=== PATIENT | female | born 1965 | race Caucasian/White ===

== ENCOUNTER 2022-09-13 20:15 | Inpatient (IN) | payer MEDICAID ==
[~2022-09-13] VITALS: Ht 170.2 cm; Wt 81.8 kg
[2022-09-14 04:14] LABS: BASOPHILS # (AUTO) 0.1 X10'3 (0-0.2); BASOPHILS % (AUTO) 0.6 % (0-1); EOSINOPHILS # (AUTO) 0.3 X10'3 (0-0.9); EOSINOPHILS % (AUTO) 3.2 % (0-6); HEMATOCRIT 35.7 % (35.0-45.0); HEMOGLOBIN 11.1 g/dl (12.0-16.0); LYMPHOCYTES # (AUTO) 1.6 X10'3 (1.1-4.8); MEAN CORPUSCULAR HEMOGLOBIN 22.9 PG (27.0-31.0); MEAN CORPUSCULAR HGB CONC 31.1 g/dL (33.0-36.5); MEAN CORPUSCULAR VOLUME 73.8 FL (78-98); MEAN PLATELET VOLUME 7.9 FL (7.4-10.4); MONOCYTES # (AUTO) 0.8 X10'3 (0-0.9); MONOCYTES % (AUTO) 8.7 % (2-12); NEUTROPHILS % (AUTO) 71.5 % (42-75); PLATELET COUNT 429 X10'3 (140-440); RED BLOOD COUNT 4.83 X10'6 (4.20-5.60); RED CELL DISTRIBUTION WIDTH 22.8 % (11.5-14.5); WHITE BLOOD COUNT 9.7 X10'3 (4.5-11.0)
[2022-09-14 04:32] LABS: ALANINE AMINOTRANSFERASE 21 U/L (12-78); ALBUMIN 2.2 G/DL (3.4-5.0); ALBUMIN/GLOBULIN RATIO 0.4 (1.1-1.5); ALKALINE PHOSPHATASE 72 IU/L (46-116); ANION GAP 9 (8-16); ASPARTATE AMINO TRANSFERASE 13 U/L (10-37); BLOOD UREA NITROGEN 20 MG/DL (7-18); BUN/CREATININE RATIO 19.6 (6.6-38.0); CALCIUM 8.9 MG/DL (8.5-10.1); CHLORIDE 102 MMOL/L (99-107); CREATININE 1.02 MG/DL (0.40-0.90); GLUCOSE 328 MG/DL (70-104); MAGNESIUM 1.8 MG/DL (1.5-2.4); POTASSIUM 3.8 MMOL/L (3.5-5.1); SODIUM 137 MMOL/L (135-145); TOTAL CARBON DIOXIDE 26.4 MMOL/L (24-32); TOTAL PROTEIN 7.2 G/DL (6.4-8.2); eGFR 56 ML/MIN
[2022-09-14 04:40] LABS: BILIRUBIN,TOTAL 0.1 MG/DL (0.1-1.0)
[2022-09-14] MEDS ORDERED: ibuprofen tablet 400 MG TABLET PO ONE (04:40)
[2022-09-14 04:54] LABS: ANISOCYTOSIS 3+; ELLIPTOCYTES FEW; MICROCYTOSIS 1+; PLATELET ESTIMATE NORMAL; TEAR DROP CELLS FEW
[2022-09-14] MEDS ORDERED: DOXYCYCLINE 100MG CAPSULE PO STA (05:16)
[2022-09-14] MEDS ORDERED: CefTRIAXone/D5W-Rocephin 1gm 50 ML IV ONE (05:20)
[2022-09-14] MEDS ORDERED: magnesium 4gm in 100ml NS 100 ML IV PRN (05:30)
[2022-09-14] MEDS ORDERED: potassium Cl 20 mEq SR tablet PO PRN (05:30)
[2022-09-14] MEDS ORDERED: magnesium Cl slow-release 64mg tablet PO PRN (05:30)
[2022-09-14] MEDS ORDERED: potassium Cl 40MEQ/1/2NS 520ml 520 ML IV PRN (05:30)
[2022-09-14] MEDS ORDERED: ondansetron/PF 4mg/2ml inj IV PRN (05:30)
[2022-09-14] MEDS ORDERED: acetaminophen 325mg tablet PO PRN (05:30)
[2022-09-14] MEDS ORDERED: magnesium hydroxide 30ml (MOM) UD suspension PO PRN (05:30)
[2022-09-14] MEDS ORDERED: mag hydrox/Alum hydrox/simeth 30ml oral suspension PO PRN (05:30)
[2022-09-14] MEDS ORDERED: MESSAGE TO PHARMACY PO ONE ×2 (05:40→10:45)
[2022-09-14] MEDS ORDERED: dextrose 50%-water 50ml dispensing syringe IV PRN ×4 (05:40→10:45)
[2022-09-14] MEDS ORDERED: glucagon, human recombinant 1mg kit SUBCUT PRN ×2 (05:40→10:45)
[2022-09-14] MEDS ORDERED: insulin Lispro (HumaLOG) vial - multi-dose SQ SCH (05:40)
[2022-09-14] MEDS ORDERED: DEXTROSE 15 GM of carb/4 tabs (each vial/BOTTLE has 4 tablets) PO PRN ×4 (05:40→10:45)
--- NOTE | 2022-09-14 06:55 | NUR ---
report from sisi chaves for continuation of care. pt is awake ao4. resp even unlabored. denies cp or sob. pt lower extremities show extreme edema and weeping. rt lower ext show abrasions. +3 pitting.pt claims pain 03/06.
[2022-09-14] MEDS: HYDROcodone/acetaminophen 10/325mg tab PO PRN ×2 (07:07→10:59)
[2022-09-14] MEDS: normal saline 1000ml 1,000 ML IV SCH (07:08)
[2022-09-14] MEDS ORDERED: carVEDilol 12.5mg tablet PO SCH (08:00)
[2022-09-14] MEDS: clindamycin 300mg/D5W 50mL 50 ML IV SCH ×3 (08:00→20:09)
[2022-09-14] MEDS: K and/or MAG REPLACEMENT MC SCH ×2 (08:00→20:00)
[2022-09-14] MEDS ORDERED: montelukast 10mg tablet PO SCH (08:00)
[2022-09-14] MEDS: docusate sod 100mg capsule PO SCH ×2 (08:00→20:00)
[2022-09-14] MEDS: heparin, porcine 5000 units/ml vial SQ SCH ×2 (08:00→20:08)
[2022-09-14] MEDS ORDERED: PERFLUTREN PROTEIN-A MICROSPHR (Optison) 0.22 MG/ML 3ML VIAL IV ONE (10:00)
[2022-09-14] MEDS ORDERED: nicotine 14mg patch - 24hr TD ONE (10:05)
[2022-09-14] MEDS ORDERED: furosemide 40mg/4ml inj IV ONE (10:45)
[2022-09-14] MEDS ORDERED: IBUP-1986 PO (11:49)
[2022-09-14] MEDS ORDERED: GABA600T13 PO (11:49)
[2022-09-14] MEDS ORDERED: CARV-50 PO (11:49)
[2022-09-14] MEDS ORDERED: GABA-530 PO (11:49)
[2022-09-14] MEDS ORDERED: CITA20TA27 PO (11:49)
[2022-09-14] MEDS ORDERED: MONT-40 PO (11:49)
[2022-09-14] MEDS ORDERED: BACL10TA2 PO (11:49)
[2022-09-14] MEDS: insulin Lispro (HumaLOG) vial - multi-dose SQ SCH ×2 (12:37→23:44)
[2022-09-14 13:13] LABS: HEMOGLOBIN A1C 7.7 % (4.5-6.2)
[2022-09-14] MEDS ORDERED: NICO-630 TD (13:30)
[2022-09-14] MEDS ORDERED: HYDROcodone/acetaminophen 5mg/325mg tablet PO PRN (13:35)
[2022-09-14] MEDS: baclofen 10mg tablet PO SCH ×2 (14:33→20:14)
[2022-09-14] MEDS: HYDROmorphone 1 mg/ml syringe IV PRN (15:21)
--- NOTE | 2022-09-14 16:52 | NUR ---
pictures taken of pt rt foot calf and buttocks
[2022-09-14] MEDS ORDERED: GLIP5TAB13 PO (17:35)
--- NOTE | 2022-09-14 18:30 | NUR ---
report to arian for continuation of care.
[2022-09-14] MEDS ORDERED: gabapentin 100mg capsule PO SCH (20:00)
[2022-09-14] MEDS: gabapentin 300mg capsule PO SCH ×2 (20:08→21:25)
[2022-09-14] MEDS: furosemide 40mg/4ml inj IV SCH (20:09)
[2022-09-14] MEDS: HYDROmorphone inj. 0.5 MG/0.5 ML DISP.SYRIN IV PRN (20:10)
[2022-09-14] MEDS: carVEDilol 12.5mg tablet PO SCH (20:15)
[2022-09-14 23:10] VITALS: BP 109/65
[2022-09-14] MEDS: insulin glargine (Lantus) pen - multi-dose SQ SCH (23:43)
[2022-09-15] MEDS: normal saline 1000ml 1,000 ML IV SCH (00:01)
[2022-09-15] MEDS: HYDROmorphone inj. 0.5 MG/0.5 ML DISP.SYRIN IV PRN ×4 (00:09→23:46)
[2022-09-15] MEDS: baclofen 10mg tablet PO SCH ×4 (02:26→21:26)
[2022-09-15] MEDS: HYDROcodone/acetaminophen 10/325mg tab PO PRN ×5 (02:26→21:29)
[2022-09-15] MEDS: clindamycin 300mg/D5W 50mL 50 ML IV SCH ×4 (02:37→19:42)
[2022-09-15 06:00] VITALS: BP 131/78
[2022-09-15 06:17] LABS: ALANINE AMINOTRANSFERASE 12 U/L (12-78); ALBUMIN 1.9 G/DL (3.4-5.0); ALBUMIN/GLOBULIN RATIO 0.4 (1.1-1.5); ALKALINE PHOSPHATASE 62 IU/L (46-116); ANION GAP 4 (8-16); ASPARTATE AMINO TRANSFERASE 16 U/L (10-37); BILIRUBIN,TOTAL 0.2 MG/DL (0.1-1.0); BLOOD UREA NITROGEN 19 MG/DL (7-18); BUN/CREATININE RATIO 22.6 (6.6-38.0); CALCIUM 8.4 MG/DL (8.5-10.1); CHLORIDE 102 MMOL/L (99-107); CREATININE 0.84 MG/DL (0.40-0.90); GLUCOSE 147 MG/DL (70-104); POTASSIUM 3.3 MMOL/L (3.5-5.1); SODIUM 138 MMOL/L (135-145); TOTAL PROTEIN 6.3 G/DL (6.4-8.2); eGFR 70 ML/MIN
[2022-09-15 06:20] LABS: BASOPHILS % (AUTO) 0.3 % (0-1); EOSINOPHILS # (AUTO) 0.3 X10'3 (0-0.9); EOSINOPHILS % (AUTO) 2.6 % (0-6); HEMOGLOBIN 10.3 g/dl (12.0-16.0); LYMPHOCYTES # (AUTO) 2.3 X10'3 (1.1-4.8); LYMPHOCYTES % (AUTO) 22.1 % (21-51); MEAN CORPUSCULAR HEMOGLOBIN 23.2 PG (27.0-31.0); MEAN CORPUSCULAR HGB CONC 31.2 g/dL (33.0-36.5); MEAN CORPUSCULAR VOLUME 74.4 FL (78-98); MEAN PLATELET VOLUME 7.8 FL (7.4-10.4); MONOCYTES # (AUTO) 1.3 X10'3 (0-0.9); MONOCYTES % (AUTO) 12.7 % (2-12); NEUTROPHILS # (AUTO) 6.3 X10'3 (1.8-7.7); NEUTROPHILS % (AUTO) 62.3 % (42-75); PLATELET COUNT 345 X10'3 (140-440); RED BLOOD COUNT 4.44 X10'6 (4.20-5.60); RED CELL DISTRIBUTION WIDTH 22.8 % (11.5-14.5); WHITE BLOOD COUNT 10.2 X10'3 (4.5-11.0)
--- NOTE | 2022-09-15 06:30 | NUR ---
Problems reprioritized. Patient report given, questions answered & plan of care reviewed with BRIAN CHADWICK.
--- NOTE | 2022-09-15 06:49 | NUR ---
Patient in room [facility]. I have received report from NETTA Castellanos and had the opportunity to ask questions and assume patient care.
[2022-09-15] MEDS: montelukast 10mg tablet PO SCH (08:00)
[2022-09-15] MEDS: K and/or MAG REPLACEMENT MC SCH ×2 (08:00→20:00)
[2022-09-15] MEDS: docusate sod 100mg capsule PO SCH ×2 (08:00→21:27)
[2022-09-15] MEDS: citalopram 20mg tablet PO SCH (08:01)
[2022-09-15] MEDS: furosemide 40mg/4ml inj IV SCH (08:01)
[2022-09-15] MEDS: gabapentin 300mg capsule PO SCH ×3 (08:01→23:45)
[2022-09-15] MEDS: carVEDilol 12.5mg tablet PO SCH ×2 (08:02→21:25)
[2022-09-15] MEDS: nicotine 14mg patch - 24hr TD SCH (08:03)
[2022-09-15] MEDS: heparin, porcine 5000 units/ml vial SQ SCH ×2 (08:04→21:31)
[2022-09-15] MEDS: potassium Cl 20 mEq SR tablet PO PRN ×3 (08:18→17:09)
[2022-09-15] MEDS: CefTRIAXone/D5W-Rocephin 1gm 50 ML IV SCH (09:05)
[2022-09-15] MEDS: insulin Lispro (HumaLOG) vial - multi-dose SQ SCH ×3 (09:15→19:25)
[2022-09-15] MEDS: HYDROmorphone 1 mg/ml syringe IV PRN ×2 (09:57→14:14)
--- NOTE | 2022-09-15 11:28 | NUR ---
Patient BP 84/52. Patient denies dizziness or lightheadedness. Dr. tOero is aware and states he will see patient and address meds. Will continue to monitor.
--- NOTE | 2022-09-15 11:33 | NUR ---
Head of bed lowered and legs elevated. BP now 86/50 hr 83.
--- NOTE | 2022-09-15 12:03 | NUR ---
BP now 95/53 HR 85. Patient appears to be resting comfortably with eyes closed, respirations even and unlabored.
[2022-09-15 12:13] VITALS: BP 95/53
[2022-09-15 12:52] VITALS: BP 102/62
--- NOTE | 2022-09-15 14:19 | NUR ---
Per EMR pt with T2DM, fairly well controlled with A1c 7.7%. Written DM education with RD contact information placed in patient's chart. Per EMR pt with BLE cellulitis. Wound care has been consulted, pending assessment at this time. Pt currently eating well on CHO controlled diet, documented with 100% PO intake first meal. Will continue to follow. Addendum: 09/15/22 at [address] Amended: Links added.
--- NOTE | 2022-09-15 15:16 | NUR ---
PRESSURE ULCER EDUCATION: DEFINITION: A pressure ulcer is an area of skin that breaks down when you stay in one position too long. The constant pressure against the skin reduces the blood flow to that area and the affected tissue dies. CAUSES: "Being bedridden or in a wheelchair "Fragile skin "Having a chronic condition, such as diabetes or vascular disease "Inability to move certain parts of your body without assistance "Older age "Incontinence of urine or stool SYMPTOMS: "A reddened area that DOES NOT turn white when pressed on - this can be the beginning of a pressure ulcer "A blister, deep sore or a crater - these can be advanced pressure ulcers FIRST AID: "Relieve the pressure on this area "Keep the area clean and dry "Call your primary doctor if you see any of the above symptoms "DO NOT massage the area "DO NOT use a donut shaped or ring shaped pillow- these actually interfere with the blood flow and cause complications PREVENTION: "Check for pressure ulcers everyday "Change position at least every two hours to relieve pressure "Use items that help relieve pressure- pillows, sheepskin, foam padding, and powders. "Keep skin clean and dry "Eat healthy well balanced meals "Exercise daily IF YOU SEE ANY OF THESE SYMPTOMS WHILE IN THE HOSPITAL - TELL YOUR NURSE IMMEDIATELY. IF YOU SEE ANY OF THESE SYMPTOMS WHILE AT HOME OR HAVE ANY QUESTIONS OR CONCERNS ABOUT PRESSURE ULCERS - CALL YOUR PRIMARY DOCTOR IMMEDIATELY. Addendum: 09/15/22 at 1516 by Nohemi Knox RN Amended: Links added.
[2022-09-15 18:00] VITALS: BP 105/60
--- NOTE | 2022-09-15 18:38 | NUR ---
Problems reprioritized. Patient report given, questions answered & plan of care reviewed with NETTA Castellanos.
--- NOTE | 2022-09-15 18:40 | NUR ---
Patient in room [facility]. I have received report from BRIAN CHADWICK and had the opportunity to ask questions and assume patient care.
--- NOTE | 2022-09-15 20:13 | NUR ---
pt stated LBM was 09/14/2022 Addendum: 09/15/22 at 2024 by Bonny Lopez STUDENT JAMAL Amended: Links added.
[2022-09-15] MEDS: insulin glargine (Lantus) pen - multi-dose SQ SCH (21:41)
[2022-09-15 22:00] VITALS: BP 122/60
[2022-09-15] MEDS: furosemide 20 MG/2 ML vial IV SCH (22:09)
--- NOTE | 2022-09-15 23:24 | NUR ---
Charting by and safe medication administration by Marcello WAGGONER reviewed and observed by Alejandro Alcazar RN
[2022-09-16] MEDS: baclofen 10mg tablet PO SCH ×4 (02:23→21:00)
[2022-09-16] MEDS: HYDROcodone/acetaminophen 10/325mg tab PO PRN ×5 (02:24→22:34)
[2022-09-16] MEDS: clindamycin 300mg/D5W 50mL 50 ML IV SCH ×3 (02:24→14:12)
[2022-09-16 06:00] VITALS: BP 120/71
[2022-09-16] MEDS: normal saline 1000ml 1,000 ML IV SCH (06:01)
[2022-09-16] MEDS: HYDROmorphone inj. 0.5 MG/0.5 ML DISP.SYRIN IV PRN ×2 (06:03→12:26)
--- NOTE | 2022-09-16 06:25 | NUR ---
Problems reprioritized. Patient report given, questions answered & plan of care reviewed with JENNIFER CHADWICK.
--- NOTE | 2022-09-16 06:30 | NUR ---
Problems reprioritized. Patient report given, questions answered & plan of care reviewed with JENNIFER CHADWICK.
--- NOTE | 2022-09-16 06:35 | NUR ---
Patient in room [facility]. I have received report from Jacqueline Phillips and had the opportunity to ask questions and assume patient care.
[2022-09-16] MEDS: K and/or MAG REPLACEMENT MC SCH ×2 (06:50→20:00)
[2022-09-16] MEDS: heparin, porcine 5000 units/ml vial SQ SCH ×2 (07:42→21:02)
[2022-09-16] MEDS: montelukast 10mg tablet PO SCH (07:42)
[2022-09-16] MEDS: carVEDilol 12.5mg tablet PO SCH ×2 (07:43→21:03)
[2022-09-16] MEDS: citalopram 20mg tablet PO SCH (07:43)
[2022-09-16] MEDS: gabapentin 300mg capsule PO SCH ×3 (07:43→21:01)
[2022-09-16] MEDS: furosemide 20 MG/2 ML vial IV SCH ×2 (07:44→21:03)
[2022-09-16] MEDS: nicotine 14mg patch - 24hr TD SCH (07:44)
[2022-09-16] MEDS: MINERAL OIL/PETROLATUM,WHITE CREAM 107 GM TUBE TP SCH (07:44)
[2022-09-16 07:47] LABS: BASOPHILS % (AUTO) 0.5 % (0-1); EOSINOPHILS # (AUTO) 0.2 X10'3 (0-0.9); EOSINOPHILS % (AUTO) 3.4 % (0-6); HEMATOCRIT 30.8 % (35.0-45.0); HEMOGLOBIN 9.7 g/dl (12.0-16.0); LYMPHOCYTES % (AUTO) 29.6 % (21-51); MEAN CORPUSCULAR HEMOGLOBIN 23.2 PG (27.0-31.0); MEAN CORPUSCULAR HGB CONC 31.4 g/dL (33.0-36.5); MEAN CORPUSCULAR VOLUME 73.9 FL (78-98); MEAN PLATELET VOLUME 8.4 FL (7.4-10.4); MONOCYTES # (AUTO) 0.9 X10'3 (0-0.9); MONOCYTES % (AUTO) 13.5 % (2-12); NEUTROPHILS # (AUTO) 3.5 X10'3 (1.8-7.7); PLATELET COUNT 263 X10'3 (140-440); RED BLOOD COUNT 4.17 X10'6 (4.20-5.60); RED CELL DISTRIBUTION WIDTH 21.6 % (11.5-14.5); WHITE BLOOD COUNT 6.7 X10'3 (4.5-11.0)
[2022-09-16] MEDS: docusate sod 100mg capsule PO SCH ×2 (07:52→20:00)
[2022-09-16 08:13] LABS: ALANINE AMINOTRANSFERASE 17 U/L (12-78); ALBUMIN 1.8 G/DL (3.4-5.0); ALBUMIN/GLOBULIN RATIO 0.4 (1.1-1.5); ALKALINE PHOSPHATASE 57 IU/L (46-116); ANION GAP 6 (8-16); ASPARTATE AMINO TRANSFERASE 21 U/L (10-37); BILIRUBIN,TOTAL 0.2 MG/DL (0.1-1.0); BLOOD UREA NITROGEN 22 MG/DL (7-18); BUN/CREATININE RATIO 25.3 (6.6-38.0); CALCIUM 8.6 MG/DL (8.5-10.1); CHLORIDE 101 MMOL/L (99-107); CREATININE 0.87 MG/DL (0.40-0.90); GLUCOSE 154 MG/DL (70-104); POTASSIUM 4.1 MMOL/L (3.5-5.1); SODIUM 138 MMOL/L (135-145); TOTAL CARBON DIOXIDE 31.2 MMOL/L (24-32); TOTAL PROTEIN 6.3 G/DL (6.4-8.2); eGFR 67 ML/MIN
[2022-09-16] MEDS: CefTRIAXone/D5W-Rocephin 1gm 50 ML IV SCH (08:17)
[2022-09-16] MEDS ORDERED: aspirin 81mg tab.chew PO ONE (08:50)
[2022-09-16 09:40] LABS: ANISOCYTOSIS 3+; MICROCYTOSIS 1+; PLATELET ESTIMATE NORMAL
[2022-09-16 09:41] LABS: ELLIPTOCYTES FEW; HYPOCHROMASIA 1+
[2022-09-16] MEDS: insulin Lispro (HumaLOG) vial - multi-dose SQ SCH ×3 (09:50→19:30)
[2022-09-16 10:00] VITALS: BP 122/58
[2022-09-16] MEDS: HYDROmorphone 1 mg/ml syringe IV PRN ×2 (16:30→20:54)
[2022-09-16 18:00] VITALS: BP 96/51
[2022-09-16] MEDS ORDERED: heparin 10,000 units/1 ML INJ IV ONE (18:10)
[2022-09-16 18:52] LABS: APTT 24 SECONDS (22-32)
[2022-09-16 20:55] VITALS: BP 105/54
[2022-09-16] MEDS: clindamycin 150mg capsule PO SCH (21:01)
[2022-09-16 22:00] VITALS: BP 99/64
[2022-09-16] MEDS: insulin glargine (Lantus) pen - multi-dose SQ SCH (22:26)
[2022-09-16] MEDS: heparin 25,000 UNIT/250ml bag 250 ML IV PRN (23:49)
[2022-09-17] MEDS: HYDROmorphone 1 mg/ml syringe IV PRN ×4 (01:10→14:31)
[2022-09-17] MEDS: baclofen 10mg tablet PO SCH ×4 (02:04→21:03)
[2022-09-17] MEDS: clindamycin 150mg capsule PO SCH ×4 (02:04→22:00)
[2022-09-17] MEDS: HYDROcodone/acetaminophen 10/325mg tab PO PRN ×5 (03:45→21:59)
[2022-09-17 06:00] VITALS: BP 117/44
--- NOTE | 2022-09-17 06:47 | NUR ---
Patient in room [facility]. I have received report from Pat and had the opportunity to ask questions and assume patient care.
[2022-09-17 07:02] LABS: BASOPHILS % (AUTO) 0.5 % (0-1); EOSINOPHILS # (AUTO) 0.2 X10'3 (0-0.9); EOSINOPHILS % (AUTO) 2.8 % (0-6); HEMATOCRIT 31.1 % (35.0-45.0); HEMOGLOBIN 9.7 g/dl (12.0-16.0); LYMPHOCYTES # (AUTO) 1.9 X10'3 (1.1-4.8); LYMPHOCYTES % (AUTO) 23.7 % (21-51); MEAN CORPUSCULAR HGB CONC 31.3 g/dL (33.0-36.5); MEAN CORPUSCULAR VOLUME 73.6 FL (78-98); MEAN PLATELET VOLUME 8.2 FL (7.4-10.4); MONOCYTES # (AUTO) 0.9 X10'3 (0-0.9); MONOCYTES % (AUTO) 11.3 % (2-12); NEUTROPHILS # (AUTO) 4.8 X10'3 (1.8-7.7); NEUTROPHILS % (AUTO) 61.7 % (42-75); PLATELET COUNT 315 X10'3 (140-440); RED BLOOD COUNT 4.23 X10'6 (4.20-5.60); RED CELL DISTRIBUTION WIDTH 22.8 % (11.5-14.5); WHITE BLOOD COUNT 7.8 X10'3 (4.5-11.0)
[2022-09-17] MEDS: citalopram 20mg tablet PO SCH (07:31)
[2022-09-17] MEDS: carVEDilol 12.5mg tablet PO SCH ×2 (07:31→21:03)
[2022-09-17] MEDS: pantoprazole 40mg Tablet.DR PO SCH (07:31)
[2022-09-17] MEDS: heparin, porcine 5000 units/ml vial SQ SCH ×2 (07:32→21:04)
[2022-09-17] MEDS: furosemide 20 MG/2 ML vial IV SCH ×2 (07:32→21:04)
[2022-09-17] MEDS: gabapentin 300mg capsule PO SCH ×3 (07:32→21:03)
[2022-09-17] MEDS: montelukast 10mg tablet PO SCH (07:32)
[2022-09-17] MEDS: heparin 10,000 units/1 ML INJ IV PRN (07:36)
[2022-09-17 07:37] LABS: ALANINE AMINOTRANSFERASE 13 U/L (12-78); ALBUMIN/GLOBULIN RATIO 0.4 (1.1-1.5); ALKALINE PHOSPHATASE 57 IU/L (46-116); ANION GAP 4 (8-16); ASPARTATE AMINO TRANSFERASE 20 U/L (10-37); BILIRUBIN,TOTAL 0.1 MG/DL (0.1-1.0); BLOOD UREA NITROGEN 21 MG/DL (7-18); BUN/CREATININE RATIO 25.6 (6.6-38.0); CALCIUM 8.5 MG/DL (8.5-10.1); CHLORIDE 99 MMOL/L (99-107); CREATININE 0.82 MG/DL (0.40-0.90); GLUCOSE 143 MG/DL (70-104); POTASSIUM 4.2 MMOL/L (3.5-5.1); SODIUM 137 MMOL/L (135-145); TOTAL CARBON DIOXIDE 34.1 MMOL/L (24-32); TOTAL PROTEIN 6.7 G/DL (6.4-8.2); eGFR 72 ML/MIN
[2022-09-17 07:47] LABS: ANISOCYTOSIS 3+; MICROCYTOSIS 1+; PLATELET ESTIMATE NORMAL; POIKILOCYTOSIS FEW; POLYCHROMASIA FEW
[2022-09-17] MEDS: nicotine 14mg patch - 24hr TD SCH (07:47)
[2022-09-17] MEDS: CefTRIAXone/D5W-Rocephin 1gm 50 ML IV SCH (07:52)
[2022-09-17] MEDS: K and/or MAG REPLACEMENT MC SCH ×2 (07:53→20:00)
[2022-09-17] MEDS: docusate sod 100mg capsule PO SCH ×2 (07:56→21:04)
[2022-09-17] MEDS: MINERAL OIL/PETROLATUM,WHITE CREAM 107 GM TUBE TP SCH (08:38)
[2022-09-17] MEDS: aspirin 81mg tab.chew PO SCH (10:32)
[2022-09-17] MEDS ORDERED: iohexol 350MG/ML 100ml bottle IV ONE (13:14)
[2022-09-17 13:25] LABS: APTT 51 SECONDS (22-32)
[2022-09-17] MEDS: insulin Lispro (HumaLOG) vial - multi-dose SQ SCH ×2 (14:18→19:35)
[2022-09-17 18:00] VITALS: BP 99/60
[2022-09-17 18:27] VITALS: BP 126/64
[2022-09-17] MEDS: HYDROmorphone inj. 0.5 MG/0.5 ML DISP.SYRIN IV PRN (19:37)
[2022-09-17 20:09] LABS: APTT 39 SECONDS (22-32)
[2022-09-17 22:00] VITALS: BP 106/54
[2022-09-17] MEDS: insulin glargine (Lantus) pen - multi-dose SQ SCH (22:06)
[2022-09-18] MEDS: HYDROmorphone inj. 0.5 MG/0.5 ML DISP.SYRIN IV PRN ×5 (00:07→19:10)
[2022-09-18] MEDS: heparin 25,000 UNIT/250ml bag 250 ML IV PRN ×2 (00:15→19:09)
[2022-09-18] MEDS: normal saline 1000ml 1,000 ML IV SCH (02:45)
[2022-09-18] MEDS: clindamycin 150mg capsule PO SCH ×4 (02:49→19:10)
[2022-09-18] MEDS: baclofen 10mg tablet PO SCH ×4 (02:49→19:10)
[2022-09-18] MEDS: HYDROcodone/acetaminophen 10/325mg tab PO PRN ×4 (03:50→22:03)
[2022-09-18 06:00] LABS: ALANINE AMINOTRANSFERASE 13 U/L (12-78); ALBUMIN/GLOBULIN RATIO 0.4 (1.1-1.5); ALKALINE PHOSPHATASE 59 IU/L (46-116); ANION GAP 4 (8-16); ASPARTATE AMINO TRANSFERASE 20 U/L (10-37); BASOPHILS % (AUTO) 0.5 % (0-1); BILIRUBIN,TOTAL 0.2 MG/DL (0.1-1.0); BLOOD UREA NITROGEN 20 MG/DL (7-18); BUN/CREATININE RATIO 21.7 (6.6-38.0); CALCIUM 8.5 MG/DL (8.5-10.1); CHLORIDE 98 MMOL/L (99-107); CREATININE 0.92 MG/DL (0.40-0.90); EOSINOPHILS # (AUTO) 0.2 X10'3 (0-0.9); EOSINOPHILS % (AUTO) 2.6 % (0-6); GLUCOSE 179 MG/DL (70-104); HEMATOCRIT 31.9 % (35.0-45.0); HEMOGLOBIN 10.1 g/dl (12.0-16.0); LYMPHOCYTES # (AUTO) 1.8 X10'3 (1.1-4.8); LYMPHOCYTES % (AUTO) 26.9 % (21-51); MEAN CORPUSCULAR HEMOGLOBIN 23.4 PG (27.0-31.0); MEAN CORPUSCULAR HGB CONC 31.5 g/dL (33.0-36.5); MEAN CORPUSCULAR VOLUME 74.3 FL (78-98); MEAN PLATELET VOLUME 8.5 FL (7.4-10.4); MONOCYTES # (AUTO) 0.8 X10'3 (0-0.9); MONOCYTES % (AUTO) 11.8 % (2-12); NEUTROPHILS % (AUTO) 58.2 % (42-75); PLATELET COUNT 209 X10'3 (140-440); POTASSIUM 3.7 MMOL/L (3.5-5.1); RED BLOOD COUNT 4.29 X10'6 (4.20-5.60); RED CELL DISTRIBUTION WIDTH 22.4 % (11.5-14.5); SODIUM 137 MMOL/L (135-145); TOTAL CARBON DIOXIDE 35.4 MMOL/L (24-32); TOTAL PROTEIN 6.9 G/DL (6.4-8.2); WHITE BLOOD COUNT 6.8 X10'3 (4.5-11.0); eGFR 63 ML/MIN
--- NOTE | 2022-09-18 06:30 | NUR ---
Problems reprioritized. Patient report given, questions answered & plan of care reviewed with AVEL CHADWICK.
--- NOTE | 2022-09-18 07:00 | NUR ---
Patient in room [facility]. I have received report from Jacqueline Phillips RN and had the opportunity to ask questions and assume patient care.
[2022-09-18 07:15] VITALS: BP 124/62
[2022-09-18] MEDS: K and/or MAG REPLACEMENT MC SCH ×2 (08:00→19:15)
[2022-09-18] MEDS: MINERAL OIL/PETROLATUM,WHITE CREAM 107 GM TUBE TP SCH (08:34)
[2022-09-18] MEDS: CefTRIAXone/D5W-Rocephin 1gm 50 ML IV SCH (08:34)
[2022-09-18] MEDS: aspirin 81mg tab.chew PO SCH (08:35)
[2022-09-18] MEDS: nicotine 14mg patch - 24hr TD SCH (08:35)
[2022-09-18] MEDS: montelukast 10mg tablet PO SCH (08:35)
[2022-09-18] MEDS: carVEDilol 12.5mg tablet PO SCH ×2 (08:35→19:10)
[2022-09-18] MEDS: citalopram 20mg tablet PO SCH (08:35)
[2022-09-18] MEDS: docusate sod 100mg capsule PO SCH ×2 (08:35→19:10)
[2022-09-18] MEDS: pantoprazole 40mg Tablet.DR PO SCH (08:35)
[2022-09-18] MEDS: furosemide 20 MG/2 ML vial IV SCH ×2 (09:26→19:10)
[2022-09-18] MEDS: gabapentin 300mg capsule PO SCH ×3 (09:26→22:03)
[2022-09-18] MEDS: insulin Lispro (HumaLOG) vial - multi-dose SQ SCH ×2 (09:39→19:06)
[2022-09-18 11:11] VITALS: BP 95/58
[2022-09-18 12:14] LABS: APTT 39 SECONDS (22-32)
--- NOTE | 2022-09-18 12:31 | NUR ---
Initial: Pt admit DX BLE cellulitis, DM, and CRISTIN per EMR. Noted pt w/ R lower leg full thickness/L lower leg partial thickness cellulitis, R 5th toe DM ulcer no depth, stage II PI L sacrum, and R ischium partial thickness wounds per WOC note. Pt PO ~75-100% avg carb controlled meals w/ fluctuations partially meeting needs. LILIANE recommends Dae smoothie BIDBD for wound healing; notified. LBM 09/15. Will continue to follow. Rec: 1. continue carb controlled diet; encourage PO 2. Dae smoothie BIDBD for wound healing; pending physician verification in EMR 3. routine bowel care 4. weekly wts Addendum: 09/18/22 at [address] Amended: Links added.
[2022-09-18] MEDS: heparin 10,000 units/1 ML INJ IV PRN (13:21)
[2022-09-18] MEDS: JUVEN Smoothie Arginine/Glut./Ca2+Bmb (Juven 19.3pkt) 240ml cup PO SCH (17:30)
[2022-09-18 18:00] VITALS: BP 101/53
--- NOTE | 2022-09-18 18:22 | NUR ---
Problems reprioritized. Patient report given, questions answered & plan of care reviewed with Armida CHADWICK.
[2022-09-18 19:15] VITALS: BP 109/54
[2022-09-18 22:00] VITALS: BP 96/53
[2022-09-18] MEDS: insulin glargine (Lantus) pen - multi-dose SQ SCH (22:02)
[2022-09-19] VITALS (7 sets, daily range): BP systolic 89–128; BP diastolic 48–71
[2022-09-19] MEDS: heparin 10,000 units/1 ML INJ IV PRN ×2 (00:16→13:35)
[2022-09-19] MEDS: heparin 25,000 UNIT/250ml bag 250 ML IV PRN ×3 (00:16→13:39)
[2022-09-19] MEDS: HYDROmorphone inj. 0.5 MG/0.5 ML DISP.SYRIN IV PRN ×2 (00:22→04:36)
[2022-09-19] MEDS: baclofen 10mg tablet PO SCH ×4 (02:23→21:45)
[2022-09-19] MEDS: clindamycin 150mg capsule PO SCH ×4 (02:23→21:45)
[2022-09-19] MEDS: HYDROcodone/acetaminophen 10/325mg tab PO PRN ×5 (02:33→21:47)
--- NOTE | 2022-09-19 06:20 | NUR ---
Problems reprioritized. Patient report given, questions answered & plan of care reviewed with NETTA FARFAN.
--- NOTE | 2022-09-19 06:48 | NUR ---
Patient in room [facility]. I have received report from Mikhail laird and had the opportunity to ask questions and assume patient care.
[2022-09-19 07:07] LABS: BASOPHILS % (AUTO) 0.5 % (0-1); EOSINOPHILS # (AUTO) 0.3 X10'3 (0-0.9); EOSINOPHILS % (AUTO) 3.3 % (0-6); HEMATOCRIT 32.7 % (35.0-45.0); HEMOGLOBIN 10.2 g/dl (12.0-16.0); LYMPHOCYTES # (AUTO) 1.9 X10'3 (1.1-4.8); LYMPHOCYTES % (AUTO) 21.7 % (21-51); MEAN CORPUSCULAR HEMOGLOBIN 23.4 PG (27.0-31.0); MEAN CORPUSCULAR HGB CONC 31.3 g/dL (33.0-36.5); MEAN CORPUSCULAR VOLUME 74.9 FL (78-98); MEAN PLATELET VOLUME 8.8 FL (7.4-10.4); MONOCYTES # (AUTO) 0.9 X10'3 (0-0.9); NEUTROPHILS # (AUTO) 5.6 X10'3 (1.8-7.7); NEUTROPHILS % (AUTO) 64.5 % (42-75); PLATELET COUNT 244 X10'3 (140-440); RED BLOOD COUNT 4.36 X10'6 (4.20-5.60); RED CELL DISTRIBUTION WIDTH 22.6 % (11.5-14.5); WHITE BLOOD COUNT 8.6 X10'3 (4.5-11.0)
[2022-09-19] MEDS: JUVEN Smoothie Arginine/Glut./Ca2+Bmb (Juven 19.3pkt) 240ml cup PO SCH ×2 (07:30→17:30)
[2022-09-19] MEDS: furosemide 20 MG/2 ML vial IV SCH ×2 (07:38→21:45)
[2022-09-19] MEDS: aspirin 81mg tab.chew PO SCH (07:40)
[2022-09-19] MEDS: docusate sod 100mg capsule PO SCH ×2 (07:40→21:45)
[2022-09-19] MEDS: carVEDilol 12.5mg tablet PO SCH ×2 (07:40→20:00)
[2022-09-19] MEDS: citalopram 20mg tablet PO SCH (07:40)
[2022-09-19] MEDS: pantoprazole 40mg Tablet.DR PO SCH (07:40)
[2022-09-19] MEDS: gabapentin 300mg capsule PO SCH ×3 (07:40→21:49)
[2022-09-19] MEDS: nicotine 14mg patch - 24hr TD SCH (07:41)
[2022-09-19] MEDS: montelukast 10mg tablet PO SCH (07:41)
[2022-09-19 07:49] LABS: % IRON SATURATION 13 % (11-46); IRON 41 UG/DL (49-151); TOTAL IRON BINDING CAPACITY 306 UG/DL (259-388)
[2022-09-19 07:54] LABS: ALANINE AMINOTRANSFERASE 14 U/L (12-78); ALBUMIN 2.4 G/DL (3.4-5.0); ALBUMIN/GLOBULIN RATIO 0.5 (1.1-1.5); ALKALINE PHOSPHATASE 62 IU/L (46-116); ANION GAP 5 (8-16); ASPARTATE AMINO TRANSFERASE 29 U/L (10-37); BILIRUBIN,TOTAL 0.1 MG/DL (0.1-1.0); BLOOD UREA NITROGEN 18 MG/DL (7-18); BUN/CREATININE RATIO 19.4 (6.6-38.0); CALCIUM 8.9 MG/DL (8.5-10.1); CHLORIDE 96 MMOL/L (99-107); CREATININE 0.93 MG/DL (0.40-0.90); GLUCOSE 157 MG/DL (70-104); SODIUM 140 MMOL/L (135-145); TOTAL PROTEIN 7.4 G/DL (6.4-8.2); eGFR 62 ML/MIN
[2022-09-19 08:00] LABS: FERRITIN 233 NG/ML (8-252); POTASSIUM 3.9 MMOL/L (3.5-5.1)
[2022-09-19] MEDS: K and/or MAG REPLACEMENT MC SCH ×2 (08:00→20:00)
[2022-09-19] MEDS: CefTRIAXone/D5W-Rocephin 1gm 50 ML IV SCH (08:52)
[2022-09-19] MEDS: MINERAL OIL/PETROLATUM,WHITE CREAM 107 GM TUBE TP SCH (08:52)
[2022-09-19] MEDS: insulin Lispro (HumaLOG) vial - multi-dose SQ SCH ×3 (09:03→19:44)
[2022-09-19] MEDS: HYDROmorphone 1 mg/ml syringe IV PRN ×4 (09:47→23:31)
--- NOTE | 2022-09-19 15:19 | NUR ---
Dr Holguin contacted with regards heparin infusion which is cardiac protocol to be changed to DVT protocol . dr holguin wishes to keep it as cardiac protocol . patient medicated q2hrly for pain 7-06/06. mod relief.
--- NOTE | 2022-09-19 18:11 | NUR ---
heparin infusion dc'd per Dr holguin. report given to Monse CHADWICK
--- NOTE | 2022-09-19 18:40 | NUR ---
Patient in room [facility]. I have received report from Tash CHADWICK and had the opportunity to ask questions and assume patient care.
[2022-09-19] MEDS: insulin glargine (Lantus) pen - multi-dose SQ SCH (22:10)
[2022-09-20] MEDS: HYDROcodone/acetaminophen 10/325mg tab PO PRN ×4 (02:49→21:54)
[2022-09-20] MEDS: baclofen 10mg tablet PO SCH ×4 (02:49→20:21)
[2022-09-20] MEDS: clindamycin 150mg capsule PO SCH ×4 (02:50→20:21)
[2022-09-20] MEDS: normal saline 1000ml 1,000 ML IV SCH (02:52)
[2022-09-20 06:00] VITALS: BP 112/52
--- NOTE | 2022-09-20 06:50 | NUR ---
Problems reprioritized. Patient report given, questions answered & plan of care reviewed with Tash CHADWICK.
--- NOTE | 2022-09-20 06:55 | NUR ---
Patient in room [facility]. I have received report from YOVANA CHADWICK and had the opportunity to ask questions and assume patient care.
[2022-09-20] MEDS: JUVEN Smoothie Arginine/Glut./Ca2+Bmb (Juven 19.3pkt) 240ml cup PO SCH ×2 (07:30→17:30)
[2022-09-20] MEDS: K and/or MAG REPLACEMENT MC SCH ×2 (08:00→20:00)
[2022-09-20] MEDS: aspirin 81mg tab.chew PO SCH (08:25)
[2022-09-20] MEDS: furosemide 20 MG/2 ML vial IV SCH ×2 (08:25→21:56)
[2022-09-20] MEDS: montelukast 10mg tablet PO SCH (08:25)
[2022-09-20] MEDS: gabapentin 300mg capsule PO SCH ×3 (08:25→20:22)
[2022-09-20] MEDS: HYDROmorphone 1 mg/ml syringe IV PRN ×2 (08:25→14:10)
[2022-09-20] MEDS: docusate sod 100mg capsule PO SCH ×2 (08:26→20:20)
[2022-09-20] MEDS: carVEDilol 12.5mg tablet PO SCH ×2 (08:26→20:20)
[2022-09-20] MEDS: citalopram 20mg tablet PO SCH (08:26)
[2022-09-20] MEDS: pantoprazole 40mg Tablet.DR PO SCH (08:26)
[2022-09-20] MEDS: nicotine 14mg patch - 24hr TD SCH (08:27)
[2022-09-20] MEDS: MINERAL OIL/PETROLATUM,WHITE CREAM 107 GM TUBE TP SCH (08:27)
[2022-09-20] MEDS: CefTRIAXone/D5W-Rocephin 1gm 50 ML IV SCH (08:41)
[2022-09-20] MEDS: insulin Lispro (HumaLOG) vial - multi-dose SQ SCH ×3 (08:53→20:02)
[2022-09-20 10:00] VITALS: BP 105/61
[2022-09-20] MEDS ORDERED: FURO40TA4 PO (10:28)
[2022-09-20] MEDS ORDERED: POTA-207 PO (10:28)
[2022-09-20] MEDS ORDERED: CLIN-91 PO (10:29)
--- NOTE | 2022-09-20 11:49 | NUR ---
PATIENT MEDICATED Q2HRLY for pain in bilat legs and sacrum. seen by Dr akhtar is for possible discharge. patient became very tearful with regards this. account services analyst and casey saw operator consulted with regards DC plan.
[2022-09-20] MEDS: ascorbic acid 500mg tablet PO SCH (17:16)
[2022-09-20 18:00] VITALS: BP 124/57
--- NOTE | 2022-09-20 18:42 | NUR ---
Problems reprioritized. Patient report given, questions answered & plan of care reviewed with Monse CHADWICK.
--- NOTE | 2022-09-20 18:45 | NUR ---
Patient in room [facility]. I have received report from Tash CHADWICK and had the opportunity to ask questions and assume patient care.
[2022-09-20] MEDS: FERROUS SULFATE 142 MG TABLET.ER (45mg elemental) PO SCH (20:22)
[2022-09-20 22:00] VITALS: BP 148/68
[2022-09-20] MEDS: nystatin 15 GM powder TP SCH (22:30)
[2022-09-20] MEDS: insulin glargine (Lantus) pen - multi-dose SQ SCH (22:35)
[2022-09-21] MEDS: baclofen 10mg tablet PO SCH ×4 (01:48→20:46)
[2022-09-21] MEDS: clindamycin 150mg capsule PO SCH ×4 (01:48→20:44)
[2022-09-21] MEDS: HYDROcodone/acetaminophen 10/325mg tab PO PRN ×2 (01:49→08:42)
--- NOTE | 2022-09-21 06:40 | NUR ---
Problems reprioritized. Patient report given, questions answered & plan of care reviewed with Tash CHADWICK.
[2022-09-21 07:04] LABS: BASOPHILS % (AUTO) 0.5 % (0-1); EOSINOPHILS # (AUTO) 0.2 X10'3 (0-0.9); EOSINOPHILS % (AUTO) 3.9 % (0-6); HEMATOCRIT 30.4 % (35.0-45.0); HEMOGLOBIN 9.5 g/dl (12.0-16.0); LYMPHOCYTES # (AUTO) 1.7 X10'3 (1.1-4.8); LYMPHOCYTES % (AUTO) 27.3 % (21-51); MEAN CORPUSCULAR HEMOGLOBIN 23.2 PG (27.0-31.0); MEAN CORPUSCULAR HGB CONC 31.1 g/dL (33.0-36.5); MEAN CORPUSCULAR VOLUME 74.7 FL (78-98); MEAN PLATELET VOLUME 8.4 FL (7.4-10.4); MONOCYTES # (AUTO) 0.8 X10'3 (0-0.9); MONOCYTES % (AUTO) 11.9 % (2-12); NEUTROPHILS # (AUTO) 3.6 X10'3 (1.8-7.7); NEUTROPHILS % (AUTO) 56.4 % (42-75); PLATELET COUNT 254 X10'3 (140-440); RED BLOOD COUNT 4.07 X10'6 (4.20-5.60); RED CELL DISTRIBUTION WIDTH 22.4 % (11.5-14.5); WHITE BLOOD COUNT 6.3 X10'3 (4.5-11.0)
[2022-09-21 07:11] LABS: ALANINE AMINOTRANSFERASE 11 U/L (12-78); ALBUMIN/GLOBULIN RATIO 0.4 (1.1-1.5); ALKALINE PHOSPHATASE 51 IU/L (46-116); ANION GAP 6 (8-16); ASPARTATE AMINO TRANSFERASE 25 U/L (10-37); BILIRUBIN,TOTAL 0.2 MG/DL (0.1-1.0); BLOOD UREA NITROGEN 17 MG/DL (7-18); BUN/CREATININE RATIO 19.5 (6.6-38.0); CALCIUM 8.8 MG/DL (8.5-10.1); CHLORIDE 99 MMOL/L (99-107); CREATININE 0.87 MG/DL (0.40-0.90); GLUCOSE 106 MG/DL (70-104); POTASSIUM 3.9 MMOL/L (3.5-5.1); SODIUM 142 MMOL/L (135-145); TOTAL CARBON DIOXIDE 36.9 MMOL/L (24-32); TOTAL PROTEIN 6.6 G/DL (6.4-8.2); eGFR 67 ML/MIN
[2022-09-21] MEDS: JUVEN Smoothie Arginine/Glut./Ca2+Bmb (Juven 19.3pkt) 240ml cup PO SCH ×2 (07:30→17:36)
--- NOTE | 2022-09-21 07:31 | NUR ---
Patient in room [facility]. I have received report from BLANQUITA CHADWICK and had the opportunity to ask questions and assume patient care.
[2022-09-21] MEDS: K and/or MAG REPLACEMENT MC SCH ×2 (08:00→20:00)
[2022-09-21] MEDS: ascorbic acid 500mg tablet PO SCH ×2 (08:42→17:35)
[2022-09-21] MEDS: docusate sod 100mg capsule PO SCH ×2 (08:42→20:45)
[2022-09-21] MEDS: CefTRIAXone/D5W-Rocephin 1gm 50 ML IV SCH (08:42)
[2022-09-21] MEDS: gabapentin 300mg capsule PO SCH ×3 (08:42→20:47)
[2022-09-21] MEDS: carVEDilol 12.5mg tablet PO SCH ×2 (08:42→20:46)
[2022-09-21] MEDS: nystatin 15 GM powder TP SCH ×3 (08:43→20:48)
[2022-09-21] MEDS: montelukast 10mg tablet PO SCH (08:43)
[2022-09-21] MEDS: citalopram 20mg tablet PO SCH (08:43)
[2022-09-21] MEDS: FERROUS SULFATE 142 MG TABLET.ER (45mg elemental) PO SCH ×2 (08:43→20:47)
[2022-09-21] MEDS: MINERAL OIL/PETROLATUM,WHITE CREAM 107 GM TUBE TP SCH (08:43)
[2022-09-21] MEDS: aspirin 81mg tab.chew PO SCH (08:43)
[2022-09-21] MEDS: nicotine 14mg patch - 24hr TD SCH (08:43)
[2022-09-21] MEDS: furosemide 20 MG/2 ML vial IV SCH ×2 (08:44→19:31)
[2022-09-21] MEDS: insulin Lispro (HumaLOG) vial - multi-dose SQ SCH ×3 (09:33→19:25)
[2022-09-21] MEDS: pantoprazole 40mg Tablet.DR PO SCH (09:34)
[2022-09-21] MEDS ORDERED: oxyCODONE/APAP 10/325mg tablet PO PRN (10:05)
--- NOTE | 2022-09-21 10:45 | NUR ---
WOC assessment: Consult received for toe nail trim. 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 She reports she knows this and she will follow-up. Refused to have nails filed as well. Reported off to primary RN.
[2022-09-21] MEDS: oxyCODONE/APAP 10/325mg tablet PO PRN (15:42)
[2022-09-21 20:00] VITALS: BP 141/76
[2022-09-21] MEDS: insulin glargine (Lantus) pen - multi-dose SQ SCH (21:04)
[2022-09-21 22:00] VITALS: BP 106/61
--- NOTE | 2022-09-21 22:54 | NUR ---
patient was given percocet 10mg at 2044 med was given by student Delores Jamison witnessed by instructor flornia Alcazar but did not save on maria elena .
--- NOTE | 2022-09-22 | NUR ---
patient had three loose Bm's today, pictures taken of wounds pending DC in am. Son came into have papers signed with regards accommodation. Dr Escoto and social and political studies professor involved. Patient stated that change in pain meds working much better see Emar. All cares given Patient resting at this time. Report given to Elizabeth CHADWICK
[2022-09-22] MEDS: oxyCODONE/APAP 10/325mg tablet PO PRN ×6 (00:45→21:45)
[2022-09-22] MEDS: baclofen 10mg tablet PO SCH ×4 (03:41→21:48)
[2022-09-22] MEDS: clindamycin 150mg capsule PO SCH ×4 (03:41→21:44)
[2022-09-22] MEDS: normal saline 1000ml 1,000 ML IV SCH (03:42)
[2022-09-22 06:00] VITALS: BP 109/70
--- NOTE | 2022-09-22 06:15 | NUR ---
Patient in room [facility]. I have received report from NETTA Johnson and had the opportunity to ask questions and assume patient care.
[2022-09-22 06:35] LABS: BASOPHILS % (AUTO) 0.5 % (0-1); EOSINOPHILS # (AUTO) 0.2 X10'3 (0-0.9); EOSINOPHILS % (AUTO) 3.9 % (0-6); HEMATOCRIT 29.9 % (35.0-45.0); HEMOGLOBIN 9.4 g/dl (12.0-16.0); LYMPHOCYTES # (AUTO) 1.7 X10'3 (1.1-4.8); LYMPHOCYTES % (AUTO) 26.7 % (21-51); MEAN CORPUSCULAR HEMOGLOBIN 23.6 PG (27.0-31.0); MEAN CORPUSCULAR HGB CONC 31.6 g/dL (33.0-36.5); MEAN CORPUSCULAR VOLUME 74.8 FL (78-98); MEAN PLATELET VOLUME 8.7 FL (7.4-10.4); MONOCYTES # (AUTO) 0.8 X10'3 (0-0.9); MONOCYTES % (AUTO) 12.1 % (2-12); NEUTROPHILS # (AUTO) 3.6 X10'3 (1.8-7.7); NEUTROPHILS % (AUTO) 56.8 % (42-75); PLATELET COUNT 239 X10'3 (140-440); RED BLOOD COUNT 3.99 X10'6 (4.20-5.60); RED CELL DISTRIBUTION WIDTH 22.2 % (11.5-14.5); WHITE BLOOD COUNT 6.3 X10'3 (4.5-11.0)
[2022-09-22 06:55] LABS: ALANINE AMINOTRANSFERASE 16 U/L (12-78); ALBUMIN 2.1 G/DL (3.4-5.0); ALBUMIN/GLOBULIN RATIO 0.4 (1.1-1.5); ALKALINE PHOSPHATASE 50 IU/L (46-116); ANION GAP 5 (8-16); ASPARTATE AMINO TRANSFERASE 23 U/L (10-37); BILIRUBIN,TOTAL 0.2 MG/DL (0.1-1.0); BLOOD UREA NITROGEN 17 MG/DL (7-18); BUN/CREATININE RATIO 17.2 (6.6-38.0); CALCIUM 8.6 MG/DL (8.5-10.1); CHLORIDE 98 MMOL/L (99-107); CREATININE 0.99 MG/DL (0.40-0.90); GLUCOSE 231 MG/DL (70-104); POTASSIUM 3.5 MMOL/L (3.5-5.1); SODIUM 138 MMOL/L (135-145); TOTAL CARBON DIOXIDE 34.9 MMOL/L (24-32); TOTAL PROTEIN 6.8 G/DL (6.4-8.2); eGFR 58 ML/MIN
[2022-09-22] MEDS: docusate sod 100mg capsule PO SCH ×2 (08:00→21:44)
[2022-09-22] MEDS: K and/or MAG REPLACEMENT MC SCH ×2 (08:00→20:00)
[2022-09-22] MEDS: JUVEN Smoothie Arginine/Glut./Ca2+Bmb (Juven 19.3pkt) 240ml cup PO SCH ×2 (08:29→17:52)
[2022-09-22] MEDS: montelukast 10mg tablet PO SCH (08:29)
[2022-09-22] MEDS: citalopram 20mg tablet PO SCH (08:29)
[2022-09-22] MEDS: pantoprazole 40mg Tablet.DR PO SCH (08:30)
[2022-09-22] MEDS: FERROUS SULFATE 142 MG TABLET.ER (45mg elemental) PO SCH ×2 (08:30→21:44)
[2022-09-22] MEDS: gabapentin 300mg capsule PO SCH ×3 (08:30→21:44)
[2022-09-22] MEDS: aspirin 81mg tab.chew PO SCH (08:30)
[2022-09-22] MEDS: ascorbic acid 500mg tablet PO SCH ×2 (08:31→16:34)
[2022-09-22] MEDS: carVEDilol 12.5mg tablet PO SCH ×2 (08:31→21:48)
[2022-09-22] MEDS: nicotine 14mg patch - 24hr TD SCH (08:32)
[2022-09-22] MEDS: furosemide 20 MG/2 ML vial IV SCH ×2 (08:32→20:00)
[2022-09-22] MEDS: CefTRIAXone/D5W-Rocephin 1gm 50 ML IV SCH (08:33)
[2022-09-22] MEDS: MINERAL OIL/PETROLATUM,WHITE CREAM 107 GM TUBE TP SCH (08:33)
[2022-09-22] MEDS: nystatin 15 GM powder TP SCH ×3 (08:33→21:00)
[2022-09-22] MEDS: insulin Lispro (HumaLOG) vial - multi-dose SQ SCH ×2 (08:55→13:40)
--- NOTE | 2022-09-22 16:54 | NUR ---
PAGER ID: [phone] MESSAGE: Monique [phone] RE: Rani Schuler room 350B - she would like to be discharged with pain meds for a couple of days
[2022-09-22] MEDS ORDERED: OXYC1TAB17 PO (17:05)
[2022-09-22] MEDS ORDERED: FERR142T13 PO (17:16)
--- NOTE | 2022-09-22 17:25 | NUR ---
DC plascencia catheter patient tolerated well.
--- NOTE | 2022-09-22 17:32 | NUR ---
Pictures within 24 hours present in the chart. Addendum: 09/22/22 at 1733 by Monique Singh RN Amended: Links added.
--- NOTE | 2022-09-22 18:10 | NUR ---
Patient has been discharged by the hospitalist. Her ride just arrived so report [facility] shift [facility] nurse who will complete the discharge.
--- NOTE | 2022-09-22 18:14 | NUR ---
Problems reprioritized. Patient report given, questions answered & plan of care reviewed with NETTA Vazquez.
--- NOTE | 2022-09-22 18:30 | NUR ---
Phone call to Dr. Escoto at shift change after report recieved, as pt had f/c d/cd at 1730 and has not voided. Pt is currently sitting on side of the bed with nursing students who put her in an attends for transfer w/ [facility] to [facility] to go home with son. Addendum: 09/22/22 at 1846 by Taylor Turner RN Amended: Links added.
--- NOTE | 2022-09-22 19:30 | NUR ---
Pt has refused to have f/c replaced as she stated that it isn't covered by her insurance. She has 55ml in her bladder with bladder scan. Kolby phoned and we are to continue with her discharge as ordered. Pt instructed to return to ER if she is unable to void and to continue to f/u with her PCP. Addendum: 09/22/22 at 1952 by Taylor Turner RN Amended: Links added.
[2022-09-22] MEDS: insulin glargine (Lantus) pen - multi-dose SQ SCH (21:00)
[2022-09-22 22:00] VITALS: BP 131/69
--- NOTE | 2022-09-22 23:30 | NUR ---
Bladder scan for 275ml, pt doesn't feel the need to void. Encouraged PO intake. Addendum: 09/23/22 at 0009 by Taylor Turner RN Amended: Links added.
[2022-09-23] MEDS: oxyCODONE/APAP 10/325mg tablet PO PRN ×5 (02:34→22:03)
[2022-09-23] MEDS: clindamycin 150mg capsule PO SCH ×4 (02:34→21:14)
[2022-09-23] MEDS: baclofen 10mg tablet PO SCH ×4 (02:34→20:00)
[2022-09-23 06:00] VITALS: BP 102/56
--- NOTE | 2022-09-23 06:20 | NUR ---
Problems reprioritized. Patient report given, questions answered & plan of care reviewed with Monique CHADWICK. Addendum: 09/23/22 at 0624 by Taylor Turner RN Amended: Links added.
--- NOTE | 2022-09-23 06:26 | NUR ---
Patient in room [facility]. I have received report from NETTA Vazqeuz and had the opportunity to ask questions and assume patient care.
[2022-09-23] MEDS: pantoprazole 40mg Tablet.DR PO SCH (06:58)
[2022-09-23] MEDS: JUVEN Smoothie Arginine/Glut./Ca2+Bmb (Juven 19.3pkt) 240ml cup PO SCH ×2 (07:30→18:17)
[2022-09-23] MEDS: MINERAL OIL/PETROLATUM,WHITE CREAM 107 GM TUBE TP SCH (08:00)
[2022-09-23] MEDS: K and/or MAG REPLACEMENT MC SCH ×2 (08:00→20:00)
[2022-09-23] MEDS: docusate sod 100mg capsule PO SCH ×2 (08:00→20:00)
[2022-09-23] MEDS: insulin Lispro (HumaLOG) vial - multi-dose SQ SCH ×2 (09:02→19:00)
[2022-09-23] MEDS: nystatin 15 GM powder TP SCH ×3 (09:14→21:15)
[2022-09-23] MEDS: citalopram 20mg tablet PO SCH (09:14)
[2022-09-23] MEDS: aspirin 81mg tab.chew PO SCH (09:14)
[2022-09-23] MEDS: nicotine 14mg patch - 24hr TD SCH (09:15)
[2022-09-23] MEDS: CefTRIAXone/D5W-Rocephin 1gm 50 ML IV SCH (09:15)
[2022-09-23] MEDS: furosemide 20 MG/2 ML vial IV SCH ×2 (09:15→21:12)
[2022-09-23] MEDS: carVEDilol 12.5mg tablet PO SCH ×2 (09:16→21:14)
[2022-09-23] MEDS: montelukast 10mg tablet PO SCH (09:16)
[2022-09-23] MEDS: gabapentin 300mg capsule PO SCH ×3 (09:16→21:14)
[2022-09-23] MEDS: ascorbic acid 500mg tablet PO SCH ×2 (09:17→17:54)
[2022-09-23] MEDS: FERROUS SULFATE 142 MG TABLET.ER (45mg elemental) PO SCH ×2 (09:17→21:14)
--- NOTE | 2022-09-23 14:51 | NUR ---
PAGER ID: [phone] MESSAGE: Monique [phone] - RE: Rani Schuler room 350B [facility] set up [facility] transport for tomorrow @ 1700
[2022-09-23 18:00] VITALS: BP 102/64
--- NOTE | 2022-09-23 18:39 | NUR ---
Problems reprioritized. Patient report given, questions answered & plan of care reviewed with NETTA Liu.
[2022-09-23] MEDS: insulin glargine (Lantus) pen - multi-dose SQ SCH (21:29)
[2022-09-23 22:00] VITALS: BP 118/65
[2022-09-24] MEDS: clindamycin 150mg capsule PO SCH ×3 (02:03→15:30)
[2022-09-24] MEDS: oxyCODONE/APAP 10/325mg tablet PO PRN ×3 (02:04→14:06)
[2022-09-24] MEDS: baclofen 10mg tablet PO SCH ×3 (02:04→15:30)
[2022-09-24] MEDS: normal saline 1000ml 1,000 ML IV SCH ×2 (05:31→05:32)
[2022-09-24 06:00] VITALS: BP 113/59
[2022-09-24 06:46] LABS: BASOPHILS % (AUTO) 0.5 % (0-1); EOSINOPHILS # (AUTO) 0.2 X10'3 (0-0.9); EOSINOPHILS % (AUTO) 3.7 % (0-6); HEMATOCRIT 30.5 % (35.0-45.0); HEMOGLOBIN 9.7 g/dl (12.0-16.0); LYMPHOCYTES # (AUTO) 1.9 X10'3 (1.1-4.8); MEAN CORPUSCULAR HEMOGLOBIN 23.9 PG (27.0-31.0); MEAN CORPUSCULAR HGB CONC 31.7 g/dL (33.0-36.5); MEAN CORPUSCULAR VOLUME 75.4 FL (78-98); MONOCYTES # (AUTO) 0.9 X10'3 (0-0.9); MONOCYTES % (AUTO) 14.9 % (2-12); NEUTROPHILS # (AUTO) 2.9 X10'3 (1.8-7.7); NEUTROPHILS % (AUTO) 48.9 % (42-75); PLATELET COUNT 241 X10'3 (140-440); RED BLOOD COUNT 4.05 X10'6 (4.20-5.60); RED CELL DISTRIBUTION WIDTH 23.2 % (11.5-14.5); WHITE BLOOD COUNT 5.9 X10'3 (4.5-11.0)
[2022-09-24 06:52] LABS: ALANINE AMINOTRANSFERASE 11 U/L (12-78); ALBUMIN 2.2 G/DL (3.4-5.0); ALBUMIN/GLOBULIN RATIO 0.4 (1.1-1.5); ALKALINE PHOSPHATASE 51 IU/L (46-116); ANION GAP 4 (8-16); ASPARTATE AMINO TRANSFERASE 22 U/L (10-37); BILIRUBIN,TOTAL 0.2 MG/DL (0.1-1.0); BLOOD UREA NITROGEN 20 MG/DL (7-18); BUN/CREATININE RATIO 22.7 (6.6-38.0); CHLORIDE 99 MMOL/L (99-107); CREATININE 0.88 MG/DL (0.40-0.90); GLUCOSE 112 MG/DL (70-104); POTASSIUM 3.9 MMOL/L (3.5-5.1); SODIUM 138 MMOL/L (135-145); TOTAL CARBON DIOXIDE 35.5 MMOL/L (24-32); TOTAL PROTEIN 7.1 G/DL (6.4-8.2); eGFR 66 ML/MIN
[2022-09-24] MEDS: JUVEN Smoothie Arginine/Glut./Ca2+Bmb (Juven 19.3pkt) 240ml cup PO SCH (07:30)
[2022-09-24] MEDS: docusate sod 100mg capsule PO SCH (08:00)
[2022-09-24] MEDS: K and/or MAG REPLACEMENT MC SCH (08:00)
[2022-09-24] MEDS: CefTRIAXone/D5W-Rocephin 1gm 50 ML IV SCH (08:43)
[2022-09-24] MEDS: carVEDilol 12.5mg tablet PO SCH (08:44)
[2022-09-24] MEDS: nicotine 14mg patch - 24hr TD SCH (08:44)
[2022-09-24] MEDS: gabapentin 300mg capsule PO SCH ×2 (08:44→15:30)
[2022-09-24] MEDS: citalopram 20mg tablet PO SCH (08:44)
[2022-09-24] MEDS: FERROUS SULFATE 142 MG TABLET.ER (45mg elemental) PO SCH (08:44)
[2022-09-24] MEDS: montelukast 10mg tablet PO SCH (08:44)
[2022-09-24] MEDS: ascorbic acid 500mg tablet PO SCH (08:45)
[2022-09-24] MEDS: pantoprazole 40mg Tablet.DR PO SCH (08:45)
[2022-09-24] MEDS: aspirin 81mg tab.chew PO SCH (08:45)
[2022-09-24] MEDS: MINERAL OIL/PETROLATUM,WHITE CREAM 107 GM TUBE TP SCH (08:46)
[2022-09-24] MEDS: nystatin 15 GM powder TP SCH ×2 (08:46→15:30)
[2022-09-24] MEDS: furosemide 20 MG/2 ML vial IV SCH (08:47)
[2022-09-24] MEDS: insulin Lispro (HumaLOG) vial - multi-dose SQ SCH (09:58)
[2022-09-24 10:00] VITALS: BP 100/51
[2022-09-24] MEDS ORDERED: oxyCODONE/APAP 5-325mg tablet PO ONE (17:00)
--- NOTE | 2022-09-24 17:22 | NUR ---
pt DC to home with son. pt was transported via [facility] via [facility]. Pt is A & o x4 and in no apparent distress. pt given extra pain meds per pts request since she is been transported to [place] where she lives. Pt educated on wound care (since son states he has a broken car and cannot come get her nor receive education on wound care). pt educated on protecting skin, barrier cream applied and given extra for home. Pt verbalizes understanding on DC orders and knows to take all antibiotics/probiotics until finish. Pt given new forbes boots to continue to use at home. pt given extra wound supplies and a new bed chavez to use at home. Addendum: 09/24/22 at 1740 by Lana Ortega RN pt refused pictures stated "is too painful and the other nurse already got them". On the she was going to be DC and transportation was held when her son fail to come get her, the picture were taken then 09/21/22. No pictures pictures today, prt refused. no changes noted from 09/21 to 09/24/22.
== END 2022-09-24 17:13 | disposition home or self-care (01) | DRG 383 ==
LOC: ER 20:17 → ED HOLD 09-14 05:33 → SUR 3N 09-14 22:55
PROVIDERS: ADMIT Internal Medicine; ATTEND Family Medicine
DX: L03.116 Cellulitis of left lower limb (principal); N17.0 Acute kidney failure with tubular necrosis; E43 Unspecified severe protein-calorie malnutrition; L89.899 Pressure ulcer of other site, unspecified stage; E11.51 Type 2 diabetes mellitus with diabetic peripheral angiopathy without gangrene; D64.9 Anemia, unspecified; F17.210 Nicotine dependence, cigarettes, uncomplicated; I10 Essential (primary) hypertension; L03.115 Cellulitis of right lower limb; M16.0 Bilateral primary osteoarthritis of hip; M17.11 Unilateral primary osteoarthritis, right knee; R32 Unspecified urinary incontinence; Z79.84 Long term (current) use of oral hypoglycemic drugs; Z99.3 Dependence on wheelchair; Z71.6 Tobacco abuse counseling; Z68.28 Body mass index [BMI] 28.0-28.9, adult
CPT/HCPCS: 36415; 71045; 75635; 80053; 82607; 82728; 82948; 83036; 83540; 83550; 83605; 83735; 83880; 84132; 84145; 85008; 85025; 85610; 85730; 87040; 87081; 93306; 93925; 93970; 97110; 97162; 97530; 99285; A6212; A6223; A6250; A6253; A6446; A6449; G0378; J0696; J1170; J1644; J1815; J1940; J3490; J7030; Q9967